=== PATIENT | male | born 1960 | race Caucasian/White ===

== ENCOUNTER 2016-09-18 10:18 | Emergency (ER) | payer BC ==
[2016-09-18] MEDS ORDERED: ONDANSETRON 4 MG/2 ML VIAL IVP STA (11:12)
[2016-09-18] MEDS ORDERED: MORPHINE SULFATE 4 MG/ML SYRINGE IV STA (11:12)
--- NOTE | 2016-09-18 12:09 | XR ---
EXAMINATION TYPE: XR elbow complete RT DATE OF EXAM: 09/18/2016 CLINICAL HISTORY: Right elbow pain following fall injury TECHNIQUE: Frontal, lateral and oblique images of the right elbow are obtained. COMPARISON: None FINDINGS: There is no acute fracture/dislocation evident in the right elbow. No abnormal fat pad si gns are seen. Some spurring at radial humeral articulation is present. The overlying soft tissue harpreet ears unremarkable. IMPRESSION: There is no acute fracture or dislocation in the right elbow.
--- NOTE | 2016-09-18 12:09 | XR ---
EXAMINATION TYPE: XR chest 2V DATE OF EXAM: 09/18/2016 COMPARISON: NONE INDICATION: Fall 9 feet TECHNIQUE: Frontal and lateral views of the chest are obtained. FINDINGS: The heart size is normal. The pulmonary vasculature is normal. The lungs are clear. No pneumothorax is evident. No displaced rib fractures are identified. Vertebra l body heights appear preserved. Mediastinum is unremarkable. IMPRESSION: 1. No acute posttraumatic change.
--- NOTE | 2016-09-18 12:10 | XR ---
EXAMINATION TYPE: XR Hip Complete RT DATE OF EXAM: 09/18/2016 COMPARISON: NONE HISTORY: 9 foot fall TECHNIQUE: 2 view right hip FINDINGS: Joint spaces preserved. No acute fractures identified. IMPRESSION: 1. No acute osseous abnormality
--- NOTE | 2016-09-18 12:11 | XR ---
EXAMINATION TYPE: XR shoulder complete RT DATE OF EXAM: 09/18/2016 COMPARISON: NONE HISTORY: Pain TECHNIQUE: Shoulder examined in 3 FINDINGS: The humeral head articulates with the glenoid. Mild joint space narrowing is present. The acromio-clavicular junction has mild degenerative change. No acute fractures or dislocations are evident. A follow up study can be performed 7-10 days from acute trauma for continued pain. IMPRESSION: 1. Normal Shoulder
--- NOTE | 2016-09-18 12:21 | XR ---
EXAMINATION TYPE: XR wrist complete RT DATE OF EXAM: 09/18/2016 COMPARISON: NONE HISTORY: 9 foot fall TECHNIQUE: 4 view right wrist FINDINGS: Minimal soft tissue swelling may be over the dorsum of the wrist. No acute fractures are ev ident. Joint spaces are preserved. If there is pain at the anatomic snuff box, a nuclear medicine bone scan could be performed for addit ional evaluation. Follow-up exams can be performed 7-10 days from acute trauma for continued pain. IMPRESSION: 1. Normal 4 view right wrist
[2016-09-18] MEDS: SODIUM CHLORIDE 0.9% 1,000 ML IV ONE ×2 (12:31→12:34)
[2016-09-18] MEDS ORDERED: DIPH,PERTUS(ACELL)TETVAC-LF 0.5 ML VIAL IM ONE (13:31)
--- NOTE | 2016-09-18 13:31 | ED ---
Fall HPI - General Chief Complaint: Fall Stated Complaint: Rt elbow, wrist & shoulder injury(fell off ladder) Time Seen by Provider: 09/18/16 10:42 Source: patient Mode of arrival: ambulatory - History of Present Illness Initial Comments: I told him off the ladder yesterday, he was to develop bilirubin, large approximate height was 10 feet, he was on the ladder unfortunately got tangled with bladder and any Boy on the concrete he is complaining about pain in the right shoulder and right elbow right wrist and right Hard time walking denies any head injury there is no hematoma was no loss of consciousness and he denies any neck injury and he do not feel is necessary to do any imaging of the head or no blurred vision no nausea no vomiting no loss of consciousness. - Related Data Previous Rx's Medication Instructions Recorded Diclofenac Sodium [Voltaren] 50 mg PO BID #30 tablet. 09/18/16 Allergies Allergy/AdvReac Type Severity Reaction Status Date / Time No Known Allergies Allergy Verified 09/18/16 11:05 Review of Systems ROS Statement: Those systems with pertinent positive or pertinent negative responses have been documented in the HPI. ROS Other: All systems not noted in ROS Statement are negative. Past Medical History Past Medical History: No Reported History History of Any Multi-Drug Resistant Organisms: None Reported Past Surgical History: No Surgical Hx Reported Past Psychological History: No Psychological Hx Reported Smoking Status: Current every day smoker Past Alcohol Use History: Daily Past Drug Use History: None Reported General Exam - General Exam Comments Initial Comments: General: The patient is awake and alert, in moderate distress Skin: Skin is warm and dry , he has a laceration on his right elbow, which was irrigated by the nursing staff and appropriate dressing was applied Eye: Pupils are equal, round and reactive to light, extra-ocular movements are intact; there is normal conjunctiva bilaterally. Ears, nose, mouth and throat: There are moist mucous membranes and no oral lesions. Neck: The neck is supple, there is no tenderness over palpation of the scalp did not reveal any laceration and hematoma. Cardiovascular: There is a regular rate and rhythm. No murmur, rub or gallop is appreciated. Respiratory: To auscultation bilateral, no wheezing no rhonchi no distress respiratory gore noticed Gastrointestinal: Soft, non-distended, non-tender abdomen without masses or organomegaly noted. There is no rebound or guarding present. Bowel sounds are unremarkable. Back: There is no tenderness to palpation in the midline. There is no obvious deformity. Musculoskeletal: Noticed a abrasion anterior part of the right shoulder number noticed a laceration on the right elbow and abrasion on the right hip. Right wrist is quite tender at the distal radius and although, range of motion is compromised because of the pain, no neurovascular deficits noticed in the shoulder or elbow or the wrist area Neurological: CN II-XII intact, Cranial nerves III through XII are intact. There are no obvious motor or sensory deficits. Coordination appears grossly intact. Speech is normal. Psychiatric: Cooperative, appropriate mood & affect, normal judgment. Limitations: no limitations Course Vital Signs 09/18/16 09/18/16 10:23 12:35 Temperature 98.7 F Pulse Rate 91 74 Respiratory 16 18 Rate Blood Pressure 127/79 127/77 O2 Sat by Pulse 97 96 Oximetry Disposition Clinical Impression: Fall, Shoulder abrasion, Laceration of right elbow, Sprain of wrist, right Disposition: HOME SELF-CARE Condition: Good Additional Instructions: Is advised to come back to the ER if symptoms get worse Prescriptions: Diclofenac Sodium [Voltaren] 50 mg PO BID #30 tablet. Referrals: None,Stated [Primary Care Provider] - 1-2 days
[2016-09-18 13:45] VITALS: BP 130/84; PULSE 71; RESP 16; TEMP 98
== END 2016-09-18 14:00 | disposition home or self-care (01) ==
LOC: EC 10:18
DX: S51.011A Laceration without foreign body of right elbow, initial encounter (principal); S63.501A Unspecified sprain of right wrist, initial encounter; S40.211A Abrasion of right shoulder, initial encounter; S70.211A Abrasion, right hip, initial encounter; F17.200 Nicotine dependence, unspecified, uncomplicated; Z23 Encounter for immunization; Z53.20 Procedure and treatment not carried out because of patient's decision for unspecified reasons; W11.XXXA Fall on and from ladder, initial encounter
CPT/HCPCS: 90471 ×2; 96374 ×2; 99283 ×2; 71020; 73502; 73030; 73080; 73110; 90715; J2270

== ENCOUNTER 2019-07-14 09:48 | Emergency (ER) | payer BC ==
[2019-07-14 09:59] VITALS: TEMP 98.6
[2019-07-14] MEDS ORDERED: SODIUM CHLORIDE 0.9% 1,000 ML IV STA (10:45)
[2019-07-14] MEDS ORDERED: KETOROLAC 30 MG/ML 1 ML VIAL IVP STA (10:45)
[2019-07-14] MEDS ORDERED: VANCOMYCIN IV PER PHARMACY 1 EACH MISC MISCELLANE PRN (10:57)
[2019-07-14] MEDS ORDERED: PIPERACILLIN-TAZOBACTAM 3.375 GM in SODIUM CHLORIDE 0.9% 100 ML IVPB STA (11:02)
[2019-07-14] MEDS ORDERED: VANCOMYCIN 1,500 MG in SODIUM CHLORIDE 0.9% 250 ML IVPB STA (11:05)
[2019-07-14 11:12] LABS: Basophils # (A) 0.1 k/uL (0-0.2); Basophils % (A) 1 %; Eosinophils # (A) 0.1 k/uL (0-0.7); Eosinophils % (A) 1 %; HCT 47.3 % (39.0-53.0); HGB 15.7 gm/dL (13.0-17.5); Lymphocytes # (A) 1.6 k/uL (1.0-4.8); Lymphocytes % (A) 16 %; MCH 31.7 pg (25.0-35.0); MCHC 33.3 g/dL (31.0-37.0); MCV 95.4 fL (80.0-100.0); Mean Platelet Volume 6.6; Monocytes # (A) 0.6 k/uL (0-1.0); Monocytes % (A) 6 %; Neutrophils # (A) 7.6 k/uL (1.3-7.7); Neutrophils % (A) 75 %; Platelet Count 355 k/uL (150-450); RBC 4.96 m/uL (4.30-5.90); RDW 12.6 % (11.5-15.5); WBC 10.1 k/uL (3.8-10.6)
--- NOTE | 2019-07-14 11:27 | ED ---
Skin/Abscess/FB HPI - General Chief complaint: Skin/Abscess/Foreign Body Stated complaint: spider bite Time Seen by Provider: 07/14/19 10:05 Source: patient Mode of arrival: ambulatory Limitations: no limitations - History of Present Illness Initial comments: Patient is a 59-year-old male presenting to the emergency room with a chief complaint of a spider bite. Patient reports the incident occurred about one week ago when he was out in his garden and back to his garage and felt sudden onset of a "sting on the butt". States since the incident, his pain is gradually increased in the localized location and the posterior aspect of the right upper thigh. States it is gradually hard to sit is a becomes very painful. States he woke up this morning with a diaphoretic episode but denies any chills or fevers at home. Patient states he suspecting a spider bite but is not exactly sure. Denies any nausea vomiting diarrhea. Denies any chest pain, shortness of breath, headaches. Denies taking any other medication to alleviate the symptoms. - Related Data Previous Rx's Medication Instructions Recorded Diclofenac Sodium [Voltaren] 50 mg PO BID #30 tablet. 09/18/16 Allergies Allergy/AdvReac Type Severity Reaction Status Date / Time No Known Allergies Allergy Verified 07/14/19 09:59 Review of Systems ROS Statement: Those systems with pertinent positive or pertinent negative responses have been documented in the HPI. ROS Other: All systems not noted in ROS Statement are negative. Past Medical History Past Medical History: No Reported History History of Any Multi-Drug Resistant Organisms: None Reported Past Surgical History: No Surgical Hx Reported Past Psychological History: No Psychological Hx Reported Smoking Status: Current every day smoker Past Alcohol Use History: Daily Past Drug Use History: None Reported General Exam Limitations: no limitations General appearance: alert, in no apparent distress Head exam: Present: atraumatic, normocephalic, normal inspection Eye exam: Present: normal appearance, PERRL, EOMI Pupils: Present: normal accommodation ENT exam: Present: normal exam, normal oropharynx, mucous membranes moist Neck exam: Present: normal inspection, full ROM Respiratory exam: Present: normal lung sounds bilaterally. Absent: respiratory distress, wheezes Cardiovascular Exam: Present: regular rate, normal rhythm, normal heart sounds Extremities exam: Present: full ROM, tenderness (Tenderness at the site of infection), normal capillary refill. Absent: normal inspection (Abscess-like formation on the posterior aspect of the right upper thigh measuring approximately 7 cm in diameter with an actively draining center. Yellow/white pus noted.) Back exam: Present: normal inspection, full ROM Neurological exam: Present: alert, oriented X3 Psychiatric exam: Present: normal affect, normal mood Skin exam: Present: warm, dry, intact, normal color Course Vital Signs 07/14/19 09:55 Temperature 98.6 F Pulse Rate 98 Respiratory 18 Rate Blood Pressure 119/86 O2 Sat by Pulse 98 Oximetry Medical Decision Making - Medical Decision Making Patient is a 59-year-old male presenting to emergency Department with a chief complaint of spider bite. Exam patient does have an actively draining abscess with surrounding cellulitic changes. CBC and CMP are unremarkable. Lactic acid is within normal limits. Patient is otherwise feeling well aside from the localized pain. Patient was given Toradol for the pain, he declined narcotic analgesia. Patient given vancomycin and Zosyn in the ED. CT obtained shows partially visualized inflammatory changes in the right gluteal soft tissue indic ated with cellulitis. No abscess was seen but the full extent of the inflammatory changes were not imaged. Suspicious left renal mass was also accidentally detected. MRI imaging recommended. Wound culture obtained. Patient will be discharged with clindamycin. Patient advised to take warm baths . Return parameters thoroughly discussed with patient was understanding and agreeable. Case discussed with physician. - Lab Data Result diagrams: 07/14/19 10:55 07/14/19 10:55 Lab Results 07/14/19 07/14/19 07/14/19 Range/Units 10:55 10:55 10:55 WBC 10.1 (3.8-10.6) k/uL RBC 4.96 (4.30-5.90) m/uL Hgb 15.7 (13.0-17.5) gm/dL Hct 47.3 (39.0-53.0) % MCV 95.4 (80.0-100.0) fL MCH 31.7 (25.0-35.0) pg MCHC 33.3 (31.0-37.0) g/dL RDW 12.6 (11.5-15.5) % Plt Count 355 (150-450) k/uL Neutrophils % 75 % Lymphocytes % 16 % Monocytes % 6 % Eosinophils % 1 % Basophils % 1 % Neutrophils # 7.6 (1.3-7.7) k/uL Lymphocytes # 1.6 (1.0-4.8) k/uL Monocytes # 0.6 (0-1.0) k/uL Eosinophils # 0.1 (0-0.7) k/uL Basophils # 0.1 (0-0.2) k/uL Sodium 137 (137-145) mmol/L Potassium 4.0 (3.5-5.1) mmol/L Chloride 103 (98-107) mmol/L Carbon Dioxide 28 (22-30) mmol/L Anion Gap 6 mmol/L BUN 11 (9-20) mg/dL Creatinine 0.59 L (0.66-1.25) mg/dL Est GFR (CKD-EPI)AfAm >90 (>60 ml/min/1.73 sqM) Est GFR (CKD-EPI)NonAf >90 (>60 ml/min/1.73 sqM) Glucose 125 H (74-99) mg/dL Plasma Lactic Acid Hansel 1.1 (0.7-2.0) mmol/L Calcium 9.1 (8.4-10.2) mg/dL Total Bilirubin 0.6 (0.2-1.3) mg/dL AST 22 (17-59) U/L ALT 18 (4-49) U/L Alkaline Phosphatase 64 (38-126) U/L Total Protein 7.1 (6.3-8.2) g/dL Albumin 4.1 (3.5-5.0) g/dL Disposition Clinical Impression: Cellulitis and abscess of buttock Disposition: HOME SELF-CARE Condition: Good Instructions (If sedation given, give patient instructions): Abscess (ED) Additional Instructions: Take prescribed medication as directed. Take warm baths. Return to emergency department if symptoms worsen. Follow up with her primary care. Is patient prescribed a controlled substance at d/c from ED?: No Referrals: None,Stated [Primary Care Provider] - 1-2 days Time of Disposition: 12:47
[2019-07-14 11:32] LABS: ALT 18 U/L (4-49); AST 22 U/L (17-59); African American GFR (CKD) >90 (>60 ml/min/1.73 sqM); Albumin 4.1 g/dL (3.5-5.0); Alkaline Phosphatase 64 U/L (38-126); Anion Gap 6 mmol/L; Blood Urea Nitrogen 11 mg/dL (9-20); Calcium 9.1 mg/dL (8.4-10.2); Carbon Dioxide 28 mmol/L (22-30); Chloride 103 mmol/L (98-107); Glucose 125 mg/dL (74-99); Non-African American GFR(CKD) >90 (>60 ml/min/1.73 sqM); Sodium 137 mmol/L (137-145); Total Bilirubin 0.6 mg/dL (0.2-1.3); Total Protein 7.1 g/dL (6.3-8.2)
--- NOTE | 2019-07-14 12:05 | CT ---
EXAMINATION TYPE: CT pelvis w con DATE OF EXAM: 07/14/2019 COMPARISON: None HISTORY: Abscess, spider bite CT DLP: 599.6 mGycm Automated exposure control for dose reduction was used. CONTRAST: Performed with IV Contrast, patient injected with 100 ml mL of Isovue 300. FINDINGS: There is a complex left renal lesion of the mid pole of the left kidney demonstrating an average Houn sfield unit of 57, multiple internal septations, and suggestion of a mural nodule on coronal image 72 . This measures 2.3 x 2.3 cm and is a suspicious finding. Too small to accurately characterize punctate hepatic lesion is seen on image 2. Low-density of the l iver suggests a mild degree of hepatic steatosis. Liver is incompletely visualized. Gallbladder is co ntracted. Partial visualization of the adrenal glands, kidneys, and pancreas. Nonvisualization of the spleen. No hydronephrosis of either kidney. Mild atherosclerosis of the abdominal aorta. Prostate gl and is heterogenous containing calcifications. Prostate gland is also enlarged. Multiple sigmoid dive rticula are seen without pericolonic fat stranding. No dilated large or small bowel. Mild multilevel degenerative change of the spine. Nonspecific sclerotic focus of the right pubic bone. On the last included images there is inflammatory fat stranding and skin thickening of the right glut eal region. No fluid collection or abscess is seen however the full extent of the inflammatory change is not viewed. Images are obtained to the anal verge below the ischium. IMPRESSION: 1. Partially visualized inflammatory change of the right gluteal soft tissues indicative of celluliti s. No abscess is seen however the full extent of the inflammatory change is not imaged. 2. Suspicious left renal mass. Further workup for renal cell carcinoma is recommended with either thr ee-phase CT abdomen including precontrast images or MRI renal mass protocol.
[2019-07-14 14:55] VITALS: BP 132/86; PULSE 80; RESP 16
[2019-07-14] MEDS ORDERED: VANCOMYCIN 1,500 MG in SODIUM CHLORIDE 0.9% 250 ML IVPB SCH (20:00)
== END 2019-07-14 14:53 | disposition home or self-care (01) ==
LOC: EC 09:48
DX: L02.31 Cutaneous abscess of buttock (principal); L03.317 Cellulitis of buttock; T63.301A Toxic effect of unspecified spider venom, accidental (unintentional), initial encounter; F17.200 Nicotine dependence, unspecified, uncomplicated
CPT/HCPCS: 36415; 80053; 83605; 85025; 87040; 87070; 87205; 72193; 99283; 96365; 96367; 96366; J2543; J3370; J1885; Q9967; 87077; 87186

== ENCOUNTER → 2022-09-04 | Outpatient (CLI) | payer BC ==
--- NOTE | 2022-09-04 14:33 | XR ---
EXAM TYPE: LUMBAR SPINE X RAY SERIES COMPARISON: NONE HISTORY: Pain TECHNIQUE: 4 views are submitted. FINDINGS: Alignment is anatomic. The pedicles are intact. The transverse processes are intact. There is diff use osteopenia with multilevel facet arthropathy and mild to moderate degenerative disc disease most marked at L5-S1 and L1-L2. There is a slight anterior listhesis of L4 relative to L5 which appears de generative. There is postsurgical changes involving the abdomen. IMPRESSION: 1. Diffuse osteopenia with multilevel degenerative disc disease most marked at L1-2 and L5-S1. 2. There is a grade 1 anterior listhesis of L4 relative to L5. Suspect multilevel foraminal encroachm ent. Consider MRI follow-up.
== END | disposition home or self-care (01) ==
LOC: RADXRYALE 14:09
PROVIDERS: ATTEND Physician Assistant Medical
DX: M51.36 Other intervertebral disc degeneration, lumbar region (principal); M51.37 Other intervertebral disc degeneration, lumbosacral region; M43.16 Spondylolisthesis, lumbar region
CPT/HCPCS: 72110

== ENCOUNTER → 2023-01-11 | Outpatient (CLI) | payer BC ==
--- NOTE | 2023-01-17 10:10 | PE ---
EXAMINATION TYPE: PET CT fusion skull to thigh DATE OF EXAM: 01/11/2023 COMPARISON: MRI lumbar spine 10/05/2022 Prior PET/CT: None HISTORY: Left Renal cancer TECHNIQUE: Following the intravenous administration of 9.3 mCi of F-18 FDG, whole body images are pe rformed from the skull base to the midthigh. Images are reviewed on the computer in the coronal, axi al, and sagittal planes. Reconstructed rotating images are created on independent workstation and re viewed on the computer. A localization and attenuation correction CT is performed in conjunction wi th the PET scan. DLP: 290.21 mGycm SCAN: Initial Blood glucose: 86 mg/dL Average Mediastinum SUV: 1.52 Average Liver SUV: 1.94 FINDINGS: NECK: No abnormal uptake THORAX: No abnormal uptake ABDOMEN: There are focal areas of uptake within the soft tissue area at the level of the renal veins. Metastatic disease is likely present. Example image 151, SUV 7.59. Some intense uptake within the pe riaortic region, image 168 has an SUV of 12.08. PELVIS: No abnormal uptake OSSEOUS STRUCTURES: There is uptake within the lytic lesion with thin the L2 vertebral level measurin g 7.42. PICC line there may be some possible uptake within the right medial maxilla, image 26, SUV 2. 7. Periodontal disease as well as metastasis could be considered. LOCALIZATION CT: Moderately extensive soft tissue thickening is through the retroperitoneal region an terior medial to the L2 vertebral body metastasis. This area has heterogenous uptake. COMPARISON: None IMPRESSION: 1. L2 vertebral body metastatic lesion. There is adjacent soft tissue density with abnormal uptake ca n be some direct extension as well as periaortic adenopathy suspicious for metastasis.
== END | disposition home or self-care (01) ==
LOC: RADPETMAIN 13:10
PROVIDERS: ATTEND Internal Medicine
DX: C79.51 Secondary malignant neoplasm of bone (principal); C64.2 Malignant neoplasm of left kidney, except renal pelvis; N18.9 Chronic kidney disease, unspecified
CPT/HCPCS: 78815; A9552

== ENCOUNTER → 2023-05-13 | Outpatient (CLI) | payer BC ==
--- NOTE | 2023-05-13 14:06 | CT ---
EXAMINATION TYPE: CT brain wo/w con DATE OF EXAM: 05/13/2023 COMPARISON: None HISTORY: abnormal MRI Technique: CT DLP: 2339 mGycm Automated exposure control for dose reduction was used. Multiple axial images are obtained through the brain from the skull base to the vertex before and aft er the uneventful administration nonionic IV contrast material. FINDINGS: There is no abnormal enhancing mass or midline shift identified. The ventricles and sulci are within normal limits in size. The globes are intact and the visualized sinuses are clear. There is no path ologic enhancement following contrast administration. IMPRESSION: Negative contrast enhanced head CT exam.
== END | disposition home or self-care (01) ==
LOC: RADCTMAIN 13:02
PROVIDERS: ATTEND Internal Medicine
DX: C64.9 Malignant neoplasm of unspecified kidney, except renal pelvis (principal); R90.89 Other abnormal findings on diagnostic imaging of central nervous system; N18.9 Chronic kidney disease, unspecified; R93.0 Abnormal findings on diagnostic imaging of skull and head, not elsewhere classified; D63.1 Anemia in chronic kidney disease
CPT/HCPCS: 70470; Q9967

== ENCOUNTER → 2023-05-23 | Outpatient (CLI) | payer BC ==
--- NOTE | 2023-05-26 15:44 | PE ---
EXAMINATION TYPE: PET CT fusion skull to thigh DATE OF EXAM: 05/23/2023 COMPARISON: No interval pertinent CT Prior PET/CT: 01/11/2023 HISTORY: Renal malignancy TECHNIQUE: Following the intravenous administration of 9.30 mCi of F-18 FDG, whole body images are p erformed from the skull base to the midthigh. Images are reviewed on the computer in the coronal, ax ial, and sagittal planes. Reconstructed rotating images are created on independent workstation and r eviewed on the computer. A localization and attenuation correction CT is performed in conjunction w ith the PET scan. DLP: 290.21 mGycm SCAN: Subsequent Blood glucose: 86 mg/dL Average Mediastinum SUV: 2 Average Liver SUV: 2.47 FINDINGS: NECK: No abnormal uptake THORAX: There is some focal uptake within the soft tissues of the medial right upper extremity, image 81, SUV 7.43. This appears to lie just inferior to the glenohumeral junction. Some inflammatory ralph ge could BE considered. Mild diffuse increased radiotracer is within bilateral axillary lymph nodes, example image 85, SUV 2. 31. This is below background may be normal. ABDOMEN: There is abnormal uptake within the anterior retroperitoneal region slightly greater on the left. Example image 159, SUV 13.51. There is some uptake within the anterior lateral spinal canal and within the osseous structure of the vertebral body, image 162, SUV 14.7. There is increased uptake w ithin periaortic and retrocaval soft tissues, example image 167. PELVIS: No suspicious uptake. OSSEOUS STRUCTURES: Majority of the destructive lesion of the lower thoracic vertebral body, example image 158, does not have increased uptake. Increased uptake appears to be largely within the soft tis sues. There is some uptake within the region of the L1 vertebral body corresponding to destructive lesions. Anterior soft tissue uptake remains present at this level, example image 167. LOCALIZATION CT: Soft tissue thickening retroperitoneal region surrounding the abdominal aorta is alka dent. Destruction of the lumbar vertebral bodies is evident. There is soft tissue density left sprinkler driver ior lateral to the aorta extending towards the proximal iliac region which is increasing from compari son. COMPARISON: The area of uptake in the periaortic soft tissues has increased in volume in the SUV over the interval. Periaortic extension remains present from prior exam. Osseous uptake mid lumbar spine is increased. IMPRESSION: 1. Worsening local recurrence in the retroperitoneal soft tissues and within lumbar vertebral bodies. Volume and SUV intensity are increasing.
== END | disposition home or self-care (01) ==
LOC: RADPETMAIN 15:24
PROVIDERS: ATTEND Internal Medicine
DX: C64.2 Malignant neoplasm of left kidney, except renal pelvis (principal); N18.9 Chronic kidney disease, unspecified
CPT/HCPCS: 78815; A9552

== ENCOUNTER → 2024-01-08 | Outpatient (CLI) | payer BC ==
[2024-01-08 14:14] LABS: Basophils % (A) 1 %; Eosinophils # (A) 0.1 k/uL (0-0.7); Eosinophils % (A) 2 %; HGB 12.7 gm/dL (13.0-17.5); Lymphocytes # (A) 0.8 k/uL (1.0-4.8); Lymphocytes % (A) 25 %; MCH 34.7 pg (25.0-35.0); MCHC 32.6 g/dL (31.0-37.0); MCV 106.5 fL (80.0-100.0); Macrocytosis Moderate; Mean Platelet Volume 7.8; Monocytes # (A) 0.2 k/uL (0-1.0); Monocytes % (A) 6 %; Neutrophils # (A) 2.1 k/uL (1.3-7.7); Neutrophils % (A) 63 %; Platelet Count 195 k/uL (150-450); RBC 3.66 m/uL (4.30-5.90); RDW 13.3 % (11.5-15.5); WBC 3.3 k/uL (3.8-10.6)
[2024-01-08 14:30] LABS: ALT 56 U/L (4-49); AST 53 U/L (17-59); African American GFR (CKD) >90 (>60 ml/min/1.73 sqM); Albumin 3.2 g/dL (3.5-5.0); Albumin/Globulin Ratio 1.2; Alkaline Phosphatase 77 U/L (38-126); Anion Gap 2 mmol/L; Blood Urea Nitrogen 10 mg/dL (9-20); Calcium 8.2 mg/dL (8.4-10.2); Carbon Dioxide 34 mmol/L (22-30); Chloride 101 mmol/L (98-107); Globulin 2.6 g/dL; Glucose 100 mg/dL (74-99); Non-African American GFR(CKD) >90 (>60 ml/min/1.73 sqM); Potassium 3.6 mmol/L (3.5-5.1); Sodium 137 mmol/L (137-145); Total Bilirubin 0.6 mg/dL (0.2-1.3); Total Protein 5.8 g/dL (6.3-8.2)
[2024-01-08 15:31] LABS: T4, Free (Free Thyroxine) 1.18 ng/dL (0.78-2.19)
--- NOTE | 2024-01-08 22:33 | CT ---
EXAMINATION TYPE: CT ChestAbdPelvis w con DATE OF EXAM: 01/08/2024 3:50 PM COMPARISON: CT chest and pelvis 11/01/2023, PET/CT 05/23/2023, 01/11/2023 CLINICAL INDICATION: Male, 63 years old with history of C64.9 PELV CANCER D75.839 THROMBOCYTOSIS; [facility] , Renal CA. Technique: CT ChestAbdPelvis w con; Multiple axial images were obtained. Two-dimensional coronal and sagittal reconstructions were obtained. Contrast used:80 ml mL of Isovue 300 with IV Contrast, (None if empty) Oral contrast used: with Oral Contrast CT DLP: 1048 mGycm, Automated exposure control for dose reduction was used. Findings: CHEST: LUNGS/ PLEURA: No pleural effusion, pneumothorax, or focal consolidation. Stable tiny right upper lob e 2 mm pulmonary micronodule (series 4, image 34). Stable right lower lobe 4 mm pulmonary nodule (ser ies 4, image 36). Stable right lower lobe peripheral 2 mm pulmonary nodule (series 4, image 46). No n ew or enlarging pulmonary nodules. AIRWAY: Patent and unremarkable.. HEART: Size within normal limits. Trace anterior pericardial effusion. MEDIASTINUM: No enlarged lymph nodes identified measure greater than 1 cm short axis. VASCULATURE: No aortic aneurysm. MUSCULOSKELETAL: No acute osseous abnormalities. Diffuse bone demineralization. Bilateral shoulder ar thropathy. No aggressive osseous lesion. SOFT TISSUES/LYMPH NODES: Unremarkable. LOWER NECK: No significant findings. ABDOMEN: ABDOMEN LIVER: Subcentimeter stable hypodense focus within the right hepatic lobe with a 2 cm and likely repr esents a cyst. No new suspicious hepatic lesions. GALLBLADDER AND BILE DUCTS: Unremarkable. PANCREAS: Mildly atrophic. SPLEEN: Surgically absent ADRENAL GLANDS: The visualized unremarkable. Left adrenal gland is not well-visualized and may be maldonado gically absent versus located posteriorly to the gastric fundus again. KIDNEYS AND URETERS: Post surgical changes from left nephrectomy. No abnormal soft tissue within the nephrectomy bed. Right kidney appears unremarkable without hydronephrosis or calculus. No focal lesio n. Contrast is demonstrated within the right collecting system on the delayed phase. PELVIS BLADDER: Underdistended which limits evaluation. REPRODUCTIVE: Coarse calcifications of the prostate gland are identified. Mildly prominent size prost ate gland measuring 4.3 cm in transverse dimension. ABDOMEN & PELVIS STOMACH AND BOWEL: Gastric distention. No focal bowel wall thickening or surrounding inflammatory lisa nges. Enteric contrast reaches the distal small bowel. There is some narrowing of the third portion o f the duodenum abutting the retroperitoneal metastatic disease. Contrast is demonstrated extending pa st this region into the remaining small bowel. PERITONEUM: No evidence of pneumoperitoneum. No free fluid. Postsurgical changes within the periaorti c retroperitoneum with surgical clips identified. VASCULATURE: Minimal atherosclerotic calcifications are present throughout the abdominal aorta and it s branches. No abdominal aortic aneurysm. Pelvic phleboliths. Portal venous system appears patent. MUSCULOSKELETAL: No acute osseous abnormalities. Confluent destructive soft tissue lesions involving the L1-L3 vertebral bodies resulting in levoscoliosis with apex at L2 again. There is pathologic frac ture with near complete height loss along the left aspect of the L2 vertebral body again. This involv es the left pedicle and transverse process with extension towards the lamina of L2. Difficult to excl ude spinal canal extension. There is at least abutment (series 3, image 70). This soft tissue lesion extends into the retroperitoneal region described below. Additional enhancing 3.1 cm lesion within th e right iliopsoas muscle at the L3 level, previously 2.5 cm (series 3, image 75). Enlarging soft tiss ue erosive lesion involving the posterior left aspect of the T12 vertebral body measuring up to 1.6 c m (series 3, image 58). There is some slight erosive changes of the adjacent rib at the costochondral junction. LYMPH NODES: No inguinal or discrete pelvic lymphadenopathy. No mesenteric lymphadenopathy. Conglomer ate soft tissue encasement of the aorta beginning just before the takeoff of the SMA and extending to the level of mid L4 vertebral body. There is greater than a high-grade degree encasement of the aort a with suspected encasement of the IVC. This grossly measures 5.9 x 3.7 x 8.2 cm, previously 6.1 x 3. 3 x 9.1 centimeters. SOFT TISSUE/ABDOMINAL WALL: Diffuse anasarca. IMPRESSION: 1. Postsurgical changes from left nephrectomy with persistent similar metastatic soft tissue encasin g the aorta from the L1-L4 vertebral levels with destructive soft tissue involving the L1-L3 vertebra l bodies. Pathologic fracture with near complete height loss involving the left aspect of the L2 vert ebral body with soft tissue destruction of the L2 left posterior elements redemonstrated. 2. Marginal increase in size of enhancing metastasis within the right iliopsoas muscle at the L3 lev el. Additional mildly increased size of destructive T12 metastatic lesion. 3. Stable right lung pulmonary nodules measuring up to 4 mm. No new or enlarging pulmonary nodules. [facility], , 01/08/2024 10:30 PM
== END | disposition home or self-care (01) ==
LOC: RADCTMAIN 13:27
PROVIDERS: ATTEND Internal Medicine
DX: C64.9 Malignant neoplasm of unspecified kidney, except renal pelvis (principal); N18.9 Chronic kidney disease, unspecified; D75.839 Thrombocytosis, unspecified; C79.51 Secondary malignant neoplasm of bone; M84.48XA Pathological fracture, other site, initial encounter for fracture; R91.8 Other nonspecific abnormal finding of lung field; Z90.5 Acquired absence of kidney; I70.0 Atherosclerosis of aorta; C78.4 Secondary malignant neoplasm of small intestine
CPT/HCPCS: 84439; 80053; 84443; 82533; 85025; 71260; 74177; 36415; Q9967

== ENCOUNTER → 2024-04-20 | Outpatient (CLI) | payer BC ==
--- NOTE | 2024-04-20 20:13 | CT ---
EXAMINATION TYPE: CT ChestAbdPelvis w con DATE OF EXAM: 04/20/2024 3:46 PM COMPARISON: 01/08/2024 CLINICAL INDICATION: Male, 63 years old with history of C64.9 KIDNEY CANCER; [facility], f/u kidney ca Technique: CT ChestAbdPelvis w con; Multiple axial images were obtained. Two-dimensional coronal and sagittal reconstructions were obtained. Contrast used:100 ml mL of Isovue 300 with IV Contrast, (None if empty) Oral contrast used: with Oral Contrast CT DLP: 845 mGycm, Automated exposure control for dose reduction was used. Findings: CHEST: LUNGS/ PLEURA: No pleural effusion, pneumothorax, or focal consolidation. Stable scattered pulmonary nodules no new or enlarging pulmonary nodules. Pulmonary nodules. AIRWAY: Patent and unremarkable.. HEART: Size within normal limits. Trace anterior pericardial effusion. No significant coronary artery disease. MEDIASTINUM: No enlarged lymph nodes identified measure greater than 1 cm short axis. VASCULATURE: No aortic aneurysm. MUSCULOSKELETAL: No acute osseous abnormalities. Diffuse bone demineralization. Bilateral shoulder ar thropathy. No aggressive osseous lesion. SOFT TISSUES/LYMPH NODES: Unremarkable. LOWER NECK: No significant findings. ABDOMEN: ABDOMEN LIVER: No suspicious liver lesions. GALLBLADDER AND BILE DUCTS: Unremarkable. PANCREAS: Mildly atrophic. SPLEEN: Surgically absent ADRENAL GLANDS: * Right adrenal gland is unremarkable. * Left adrenal gland is not well-visualized and may be surgically absent versus located posteriorly to the gastric fundus again. KIDNEYS AND URETERS: * Post surgical changes from left nephrectomy. No abnormal soft tissue within the nephrectomy bed. * Right kidney appears unremarkable without hydronephrosis or calculus. No focal lesion. Contrast is demonstrated within the right collecting system on the delayed phase. PELVIS BLADDER: Underdistended which limits evaluation. REPRODUCTIVE: Similar coarse calcifications of the prostate gland are identified on the right. Mildly prominent size prostate gland measuring 4.4 cm in transverse dimension. ABDOMEN & PELVIS STOMACH AND BOWEL: No focal bowel wall thickening or surrounding inflammatory changes. Enteric contra st reaches the distal small bowel. There is some narrowing of the third portion of the duodenum abutt ing the retroperitoneal metastatic disease. Contrast is demonstrated extending past this region into the remaining small bowel. PERITONEUM: * No evidence of pneumoperitoneum. * There is a small amount of free fluid in the abdomen * Postsurgical changes within the periaortic retroperitoneum with surgical clips identified. VASCULATURE: Minimal atherosclerotic calcifications are present throughout the abdominal aorta and it s branches. No abdominal aortic aneurysm. Pelvic phleboliths. Portal venous system appears patent. MUSCULOSKELETAL: Confluent destructive soft tissue lesions involving the L1-L3 vertebral bodies resulting in levoscoli osis with apex at L2 again. There is pathologic fracture with near complete height loss along the lef t aspect of the L2 vertebral body again. Overall area soft tissue mass in the retroperitoneum measure s at least 6.8 x 3.6 x 11.2 cm previously 5.9 x 3.7 x 8.2 cm . Additionally there is destructive bony changes of the T12 and L1 vertebrae on the left with lytic lesion measuring up to 34 x 24 mm, previo usly 14 mm series 6 image 59. Soft tissue like mass in the anterior aspect of the left side of L3 vertebral body measuring up to 25 mm similar prior. Series 6 image 59. Mass effect in the right psoas muscle measuring up to 42 x 24 mm, previously 28 x 19 mm LYMPH NODES: No inguinal or discrete pelvic lymphadenopathy. No mesenteric lymphadenopathy. Conglomer ate masses described above within the retroperitoneum surrounding the aorta and other structures. Thi s is described above. SOFT TISSUE/ABDOMINAL WALL: Diffuse anasarca. IMPRESSION: 1. Progression of disease with enlarging metastatic deposits and bony destructive changes.Similar po stsurgical changes with left nephrectomy with persistent similar metastatic soft tissue encasing the aorta from the L1-L4 vertebral levels with destructive soft tissue involving the L1-L3 vertebral bodi es. Pathologic fracture with near complete height loss involving the left aspect of the L2 vertebral body with soft tissue destruction of the L2 left posterior elements slightly worsened. 2. Increase in size of right psoas muscle at the L3 level. 3. Interval increase in size of destructive T12 metastatic lesion. 4. Stable right lung pulmonary nodules measuring up to 4 mm. No new or enlarging pulmonary nodules. [facility], , 04/20/2024 8:11 PM
== END | disposition home or self-care (01) ==
LOC: RADCTMAIN 13:25
PROVIDERS: ATTEND Internal Medicine
DX: C64.9 Malignant neoplasm of unspecified kidney, except renal pelvis (principal); C79.51 Secondary malignant neoplasm of bone; M84.48XA Pathological fracture, other site, initial encounter for fracture; R91.8 Other nonspecific abnormal finding of lung field; Z90.5 Acquired absence of kidney
CPT/HCPCS: 71260; 74177; Q9967

== ENCOUNTER → 2024-09-04 | Outpatient (CLI) | payer MEDICARE, BC ==
[2024-09-04 13:12] LABS: African American GFR (CKD) >90 (>60 ml/min/1.73 sqM); Blood Urea Nitrogen 17 mg/dL (9-20); Non-African American GFR(CKD) >90 (>60 ml/min/1.73 sqM)
--- NOTE | 2024-09-04 15:08 | CT ---
EXAMINATION TYPE: CT ChestAbdPelvis w con CT DLP: 485.9 mGycm, Automated exposure control for dose reduction was used. DATE OF EXAM: 09/04/2024 2:41 PM COMPARISON: Multiple CT Chest Abdomen Pelvis With most recent 04/20/2024, PET/CT 05/23/2023, 01/11/2023 CLINICAL INDICATION:Male, 64 years old with history of N18.9 C79.51 C64.9 S32.000A D75.839; [facility], f/u kidney ca Technique: Multiple axial images of the chest, abdomen, and pelvis were obtained following the intrav enous administration of 100 mL Isovue-300. Oral contrast was administered. Two-dimensional coronal an d sagittal reconstructions were obtained. Findings: CHEST: LUNGS/ PLEURA: No pleural effusion or pneumothorax. Development of right upper lobe reticular groundg lass opacities. Stable right lower lobe 4 mm pulmonary nodule (series 4, image 34). No other clinical ly significant pulmonary nodules. AIRWAY: Patent and unremarkable.. HEART: Size within normal limits. Trace anterior pericardial effusion. MEDIASTINUM: No enlarged lymph nodes identified measure greater than 1 cm short axis. VASCULATURE: No aortic aneurysm. No evidence for central pulmonary embolism. MUSCULOSKELETAL: No acute osseous abnormalities. Diffuse bone demineralization. Bilateral shoulder ar thropathy. No aggressive osseous lesion. SOFT TISSUES/LYMPH NODES: Unremarkable. LOWER NECK: No significant findings. ABDOMEN: ABDOMEN LIVER: No suspicious lesions. GALLBLADDER AND BILE DUCTS: Somewhat hydropic. No biliary ductal dilatation. PANCREAS: Mildly atrophic. SPLEEN: Surgically absent ADRENAL GLANDS: The visualized unremarkable. Left adrenal gland is not well-visualized and may be maldonado gically absent versus located posteriorly to the gastric fundus again. KIDNEYS AND URETERS: Post surgical changes from left nephrectomy. No abnormal soft tissue within the nephrectomy bed. Right kidney appears unremarkable without hydronephrosis or calculus. No focal lesio n. Contrast is demonstrated within the right collecting system on the delayed phase. PELVIS BLADDER: Underdistended which limits evaluation. REPRODUCTIVE: Coarse calcifications of the prostate gland are identified. Mildly prominent size prost ate gland. ABDOMEN & PELVIS STOMACH AND BOWEL: Gastric distention redemonstrated. Rectal fecaloma measuring up to 7.[address] No focal bowel wall thickening or surrounding inflammatory changes. Enteric contrast reaches the distal small bowel. There is some narrowing of the third portion of the duodenum abutting the retrop eritoneal metastatic disease. Contrast is demonstrated extending past this region into the remaining small bowel. PERITONEUM: No evidence of pneumoperitoneum. No free fluid. Postsurgical changes within the periaorti c retroperitoneum with surgical clips identified. VASCULATURE: Minimal atherosclerotic calcifications are present throughout the abdominal aorta and it s branches. No abdominal aortic aneurysm. Pelvic phleboliths. Portal venous system appears patent. MUSCULOSKELETAL: No acute osseous abnormalities. Confluent destructive soft tissue lesions involving the L1-L3 vertebral bodies resulting in levoscoliosis with apex at L2 again. There is pathologic frac ture with near complete height loss along the left aspect of the L2 vertebral body again. This involv es the left pedicle and transverse process with extension towards the lamina of L2. There is suggeste d mild effacement of the anterior thecal sac on the left. This soft tissue lesion extends into the re troperitoneal region described below. Additional enhancing 4.2 cm lesion within the right iliopsoas m uscle at the L3 level, previously 3.8 cm. Enlarging soft tissue erosive lesions involving the T12-L3 vertebral bodies again. These appear slightly larger from prior exam. LYMPH NODES: No inguinal or discrete pelvic lymphadenopathy. No mesenteric lymphadenopathy. Conglomer ate soft tissue encasement of the aorta beginning just before the takeoff of the SMA and extending to the level of L4-L5 disc space level. There is high-grade degree encasement of the aorta with suspect ed encasement of the IVC. This grossly measures 5.8 x 3.6 cm, previously 6.8 x 3.7 cm.. SOFT TISSUE/ABDOMINAL WALL: Diffuse anasarca. IMPRESSION: 1. Progression of disease with enlarging metastatic deposits and bony destructive changes. Similar p ostsurgical changes with left nephrectomy with persistent similar metastatic soft tissue encasing the aorta from the L1-L4 vertebral levels with increasing destructive soft tissue involving the T12-L3 v ertebral bodies. Pathologic fracture with near complete height loss involving the left aspect of the L2 vertebral body with soft tissue destruction of the L2 left posterior elements slightly worsened. 2. Increase in size of right psoas metastasis at the L3 level. 3. Stable right lung pulmonary nodules measuring up to 4 mm. No new or enlarging pulmonary nodules. 4. Development of mild right upper lobe reticular groundglass opacities suggesting an infectious/infl ammatory processes. [facility], , 09/04/2024 3:06 PM
== END | disposition home or self-care (01) ==
LOC: RADCTMAIN 12:08
PROVIDERS: ATTEND Internal Medicine
DX: S32.000A Wedge compression fracture of unspecified lumbar vertebra, initial encounter for closed fracture (principal); C79.51 Secondary malignant neoplasm of bone; C64.9 Malignant neoplasm of unspecified kidney, except renal pelvis; D75.839 Thrombocytosis, unspecified; N18.9 Chronic kidney disease, unspecified; R91.8 Other nonspecific abnormal finding of lung field; X58.XXXA Exposure to other specified factors, initial encounter
CPT/HCPCS: 82565; 84520; 71260; 74177; 36415; Q9967